=== PATIENT | male | born 1995 | race Two or more races ===

== ENCOUNTER 2017-01-24 19:53 | Emergency (ER) | payer SELFPAY ==
[2017-01-24] MEDS ORDERED: PROPARACAINE HCL 0.5% 300 GTTS/BOT SOLN.DROP ONE (20:29)
== END 2017-01-24 21:08 | disposition home or self-care (01) ==
LOC: ED 19:53
DX: H10.31 Unspecified acute conjunctivitis, right eye (principal)
CPT/HCPCS: 99283 ×2; A9270